=== PATIENT | female | born 1990 | race Caucasian/White ===

== ENCOUNTER 2024-11-27 15:59 | Emergency (ER) | payer OTHER ==
--- OUTSIDE RECORDS SUMMARY | 2024-11-27 16:03 | XMS REPORT | Continuity of Care Document ---
Author Name Unknown Address [address] [facility] [place] [address] [facility] [place] Address [address] [facility] [address] [place] [address] Care Team Providers Care Back Padder Name Role Phone Kamlesh Suarez Primary Care Physician [phone] [email or web address]_S Attending Clinician Unavaila JOSE Amaya Attending Clinician Unavailable Kristina LOGAN, Jose Morris Attending Clinician [phone] Doctor Unassigned, Doniphan Attending Clinician U navailable 2, Adc Lab Attending Clinician Unavailable ERIC CROOKS Attending Clinician Unavailable Yelena CARSON, Chelo Attending Clinician [phone] Petey MEZA, Ana Del Toro Attending Clinician Unavailab le Only, Ang Db Test Attending Clinician Unavailyousif e Unknown, Attending Attending Clinician Unavailab Yon Self Attending Clinician [phone] YON LANG Attending Clinician Unavailable CHELO KIRK Attending Clinician Unavailable Ann Marie Solis RN Attending Clinician Unavailable Rebecca Sanchez RN Attending Clinician Unavaila QUINTON Roy Attending Clinician Unavail able Only, Fri Cbc Test Attending Clinician Unavailab Quinton Lopez DO Attending Clinician [phone] LESVIA MAYFIELD Attending Clinician Unavailyousif Eaton MD, Dorita Dawson Attending Clinician [phone] [email or web address]_S Admitting Clinician Unavaila ble Payers Payer Name Policy Type Policy Number Effective Date Expirati on Date Source TSHBP 90 DEGREES [id number] 2022 00:00:00 [employer] HMO [id number] 00:00:00 MELVINA TORIBIO [id number] 2016 00:00:00 Problems Condition Name Condition Details Condition Category Status Onset Date Resolution Date Last Treatment Date Treating Clinician Comments Source Severe single current episode of major depressive disorder, without psychotic features Severe single current episode of major depressive disorder, without psychotic features Disease Active 02-02 00:00: 00 [facility] S/P primary low transverse S/P primary low transverse Disease Active 01-16 00:00: 00 [facility] Morbid obesity with body mass index of 50 or higher Morbid obesity with body mass index of 50 or higher Disease Active 12-12 00:00: 00 [facility] Morbid obesity with body mass index of 40.0-49.9 Morbid obesity with body mass index of 40.0-49.9 Disease Active 12-12 00:00: 00 [facility] BV (bacterial vaginosis) BV (bacterial vaginosis) Disease Active 11-05 00:00: 00 [facility] Sleep disturbanc e Sleep disturbanc e Disease Active 09-05 00:00: 00 [facility] Depressed mood Depressed mood Disease Active 2015-07 00:00: 00 [facility] Allergies, Adverse Reactions, Alerts Allergy Name Allergy Type Status Severity Reaction(s) Onset Date Inactive Date Treating Clinician Comments Source HYDROCOD ONE DRUG INGREDI Active Hives 2015-07 00:00: 00 [facility] Hydrocod one Propensi ty to adverse reaction s Active Hives 2015-07 00:00: 00 Father states he is severely allergic to Morphine [facility] Social History Social Habit Start Date Stop Date Quantity Comments Source [facility] to SARS-CoV-2 (event) 2022-09-06 00:00:00 2022-09-16 14:41:00 Not sure [facility] Alcohol intake 2022-02-25 00:00:00 2022-02-25 00:00:00 .43 /d [facility] History of Social function 2019-02-02 00:00:00 2019-02-02 00:00:00 [facility] Tobacco use and exposure 2016-08-22 00:00:00 2016-08-22 00:00:00 Smokeless tobacco non-user [facility] Sex Assigned At 1990 00:00:00 1990 00:00:00 [facility] Smoking Status Start Date Stop Date Source Never smoked tobacco [facility] Medications Ordered Medication Name Filled Medication Name Start Date Stop Date Current Medication? Ordering Clinician Indication Dosage Frequency Signature (SIG) Comments Components Source metFORMIN 500 mg tablet 18 00:00: 00 Yes 500mg Take 500 mg by mouth in the morning. [facility] ferrous sulfate (IRON, FERROUS SULFATE,) 325 mg (65 mg iron) tablet 08-13 00:00: 00 Yes [id number] 325mg Take 1 tablet by mouth in the morning and 1 tablet in the evening. [facility] levothyroxi ne 100 mcg tablet 2021-07 2 00:00: 00 Yes [id number] 100ug Take 1 tablet by mouth every morning. [facility] medroxyPROG ESTERone (PROVERA) 10 mg tablet 2021-07 012 00:00: 00 Yes [id number] 20mg Take 2 tablets by mouth in the morning. [facility] miSOPROStoL 200 mcg tablet 2021-07 0-12 00:00: 00 09-16 00:00 :00 No [id number] Take one tablet night before procedure, then take one tablet morning of procedure [facility] miSOPROStoL 200 mcg tablet 02-25 00:00: 00 05-07 00:00 :00 No [id number] Take one tablet night before procedure, then take one tablet morning of procedure [facility] escitalopra m oxalate 10 mg tablet 7-11 00:00: 00 Yes 10mg Take 10 mg by mouth in the morning. [facility] levothyroxi ne 100 mcg tablet 506 00:00: 00 07-24 00:00 :00 No 100ug Take 100 mcg by mouth. [facility] SERTraline (ZOLOFT) 25 mg tablet 2018-07 2- 00:00: 00 Yes [id number] 25mg Take 1 tablet by mouth daily. [facility] MULTIVITAMI N ORAL 02-02 15:34: 00 Yes Take by mouth. [facility] Immunizations Ordered Immunization Name Filled Immunization Name Date Status Comments Source Influenza Virus Vaccine Quad IM 3+ YRS 2022-03-19 00:00:00 Completed [facility] TDAP 2022-03-19 00:00:00 Completed [facility] TDAP 2016-09-05 00:00:00 Completed [facility] TDAP 2016-09-05 00:00:00 Completed [facility] TDAP 2016-09-05 00:00:00 Completed [facility] TDAP 2016-09-05 00:00:00 Completed [facility] TDAP 2016-09-05 00:00:00 Completed [facility] TDAP 2016-09-05 00:00:00 Completed [facility] TDAP 2016-09-05 00:00:00 Completed [facility] TDAP 2016-09-05 00:00:00 Completed [facility] TDAP 2016-09-05 00:00:00 Completed [facility] TDAP 2016-09-05 00:00:00 Completed [facility] TDAP 2016-09-05 00:00:00 Completed [facility] TDAP 2016-09-05 00:00:00 Completed [facility] TDAP 2016-09-05 00:00:00 Completed [facility] TDAP 2016-09-05 00:00:00 Completed [facility] TDAP 2016-09-05 00:00:00 Completed [facility] TDAP 2016-09-05 00:00:00 Completed [facility] TDAP 2016-09-05 00:00:00 Completed [facility] Influenza Virus Vaccine Quad IM 3+ YRS 2016-05-02 00:00:00 Completed [facility] Influenza Virus Vaccine Quad IM 3+ YRS 2016-05-02 00:00:00 Completed [facility] Influenza Virus Vaccine Quad IM 3+ YRS 2016-05-02 00:00:00 Completed [facility] Influenza Virus Vaccine Quad IM 3+ YRS 2016-05-02 00:00:00 Completed [facility] Influenza Virus Vaccine Quad IM 3+ YRS 2016-05-02 00:00:00 Completed [facility] Influenza Virus Vaccine Quad IM 3+ YRS 2016-05-02 00:00:00 Completed [facility] Influenza Virus Vaccine Quad IM 3+ YRS 2016-05-02 00:00:00 Completed [facility] Influenza Virus Vaccine Quad IM 3+ YRS 2016-05-02 00:00:00 Completed [facility] Influenza Virus Vaccine Quad IM 3+ YRS 2016-05-02 00:00:00 Completed [facility] Influenza Virus Vaccine Quad IM 3+ YRS 2016-05-02 00:00:00 Completed [facility] Influenza Virus Vaccine Quad IM 3+ YRS 2016-05-02 00:00:00 Completed [facility] Influenza Virus Vaccine Quad IM 3+ YRS 2016-05-02 00:00:00 Completed [facility] Influenza Virus Vaccine Quad IM 3+ YRS 2016-05-02 00:00:00 Completed [facility] Influenza Virus Vaccine Quad IM 3+ YRS 2016-05-02 00:00:00 Completed [facility] Influenza Virus Vaccine Quad IM 3+ YRS 2016-05-02 00:00:00 Completed [facility] Influenza Virus Vaccine Quad IM 3+ YRS 2016-05-02 00:00:00 Completed [facility] Influenza Virus Vaccine Quad IM 3+ YRS 2016-05-02 00:00:00 Completed [facility] Vital Signs Vital Name Observation Time Observation Value Comments S ource Systolic blood pressure 2022-09-16 20:50:00 99 mm[Hg] Dillon o [facility] Diastolic blood pressure 2022-09-16 20:50:00 65 mm[Hg] Dillon o [facility] Heart rate 2022-09-16 20:50:00 71 /[facility] temperature 2022-09-16 20:50:00 37.06 Ryanne [facility] Body height 2022-09-16 20:50:00 165.1 cm [facility] Body weight 2022-09-16 20:50:[address] [facility] BMI 2022-09-16 20:50:00 58.31 kg/m2 Univ [facility] Systolic blood pressure 2022-08-13 15:11:00 90 mm[Hg] University o [facility] Diastolic blood pressure 2022-08-13 15:11:00 58 mm[Hg] Dillon o [facility] Heart rate 2022-08-13 15:11:00 76 /min Unive [facility] Body temperature 2022-08-13 15:11:00 37.06 Ryanne [facility] Body height 2022-08-13 15:11:00 165.1 cm Univ [facility] Body weight 2022-08-13 15:11:00 158.215 kg Univ [facility] BMI 2022-08-13 15:11:00 58.04 kg/m2 Univ [facility] Systolic blood pressure 2022-05-01 14:49:00 97 mm[Hg] Dillon o [facility] Diastolic blood pressure 2022-05-01 14:49:00 58 mm[Hg] [facility] hospital Heart rate 2022-05-01 14:49:00 64 /min Unive [facility] Body temperature 2022-05-01 14:49:00 36.89 Ryanne [facility] Body height 2022-05-01 14:49:[address] [facility] Body weight 2022-05-01 14:49:00 156.854 kg Univ [facility] BMI 2022-05-01 14:49:00 57.54 kg/m2 Univ [facility] Systolic blood pressure 2022-02-25 19:12:00 104 mm[Hg] University o [facility] Diastolic blood pressure 2022-02-25 19:12:00 68 mm[Hg] General acute hospital Heart rate 2022-02-25 19:12:00 75 /min Unive [facility] Body temperature 2022-02-25 19:12:00 36.78 Ryanne [facility] Respiratory rate 2022-02-25 19:12:00 19 /min [facility] Body height 2022-02-25 19:12:00 165.1 cm [facility] Body weight 2022-02-25 19:12:00 155.221 kg [facility] BMI 2022-02-25 19:12:00 56.95 kg/m2 [facility] Procedures Procedure Date / Time Performed Performing Clinicia n Source DISCLOSURE AND CONSENT, MEDICAL AND SURGICAL PROCEDURES 2022-09-16 06:01:00 Doctor Unassigned, Doniphan [facility] POCT TEST 2022-09-16 00:00:00 Jose Acevedo [facility] ASSIGNMENT OF BENEFITS 2022-08-13 14:53:26 Docto r Unassigned, Doniphan [facility] DISCLOSURE AND CONSENT, MEDICAL AND SURGICAL PROCEDURES 2022-05-01 05:01:00 Doctor Unassigned, Doniphan [facility] POCT TEST 2022-05-01 00:00:00 Jose Acevedo [facility] PHYSICIAN ORDERS 2022-03-19 05:01:00 Doctor Unas signed, Doniphan [facility] Encounters Start Date/Time End Date/Time Encounter Type Admission Type Attending Clinicians Care Facility Care Department Encounter ID Source 2023-05-23 00:00:00 2023-05-23 00:00:00 Outpatient GC_[email or web address] diyala_S [facility] [id number] [facility] 2022-10-15 14:00:00 2022-10-15 14:00:00 Outpatient R JOSE ACEVEDO [facility] [id number] [facility] 2022-10-14 00:00:00 2022-10-14 00:00:00 Telephone Jose Acevedo [facility] 1.2.840.114 350.1.13.10 4.2.7.2.686 [id number] [facility] 2022-09-16 14:45:00 2022-09-16 15:37:39 Outpatient JOSE ALVAREZ [facility] [id number] [facility] 2022-09-16 14:45:00 2022-09-16 15:37:39 Office Visit Jose Acevedo [facility] 1.2.840.114 350.1.13.10 4.2.7.2.686 [id number] [facility] 2022-09-16 00:00:00 2022-09-16 00:00:00 Orders Only Doctor Unassigned, Doniphan [facility] 1.20.114 350.1.13.10 4.2.7.2.686 [id number] [facility] 2022-08-19 13:45:00 2022-08-19 13:45:00 Outpatient R KRISTINA [facility] [id number] [facility] 2022-08-13 10:00:00 2022-08-13 10:46:35 [facility] [id number] 2022-08-13 10:00:00 2022-08-13 10:15:00 Manager Zone Visit 2, Adc [facility] 1.2840.114 350.1.13.10 4.2.7.2.686 [id number] [facility] 2022-08-13 09:00:00 2022-08-13 09:50:38 Office Visit Jose Acevedo [facility] 1.2.840.114 350.1.13.10 4.2.7.2.686 [id number] [facility] 2022-08-13 00:00:00 2022-08-13 00:00:00 Orders Only Doctor Unassigned, Doniphan [facility] 1.2840.114 350.1.13.10 4.2.7.2.686 [id number] [facility] 2022-08-13 00:00:00 2022-08-13 00:00:00 Case Management Jose Acevedo [facility] 1.2840.114 350.1.13.10 4.2.7.2.686 [id number] [facility] 2022-07-22 00:00:00 2022-07-22 00:00:00 Refill Jose Acevedo [facility] 1.2840.114 350.1.13.10 4.2.7.2.686 [id number] [facility] 2022-06-05 15:00:00 2022-06-05 15:00:00 Outpatient R ERIC CROOKS [facility] [id number] [facility] 2022-05-07 00:00:00 2022-05-07 00:00:00 Case Management GonzaloChelo srivastava [facility] 1.2.840.114 350.1.13.10 4.2.7.2.686 [id number] [facility] 2022-05-01 09:45:00 2022-05-01 10:55:45 Outpatient R JOSE ACEVEDO [facility] [id number] [facility] 2022-05-01 09:45:00 2022-05-01 10:55:45 Office Visit Jose Acevedo [facility] 1.2.840.114 350.1.13.10 4.2.7.2.686 [id number] [facility] 2022-05-01 00:00:00 2022-05-01 00:00:00 Orders Only Doctor Unassigned, Doniphan [facility] 1.2.840.114 350.1.13.10 4.2.7.2.686 [id number] [facility] 2022-04-28 09:00:00 2022-04-28 09:00:00 Outpatient R JOSE ACEVEDO [facility] [id number] [facility] 2022-04-04 00:00:00 2022-04-04 00:00:00 Letter (Out) Ana Angelo [facility] 1.114 350.1.13.10 4.2.7.2.686 [id number] [facility] 2022-04-03 11:00:00 2022-04-03 11:15:00 Laboratory Only Only, Ang Db Test Unknown, Attending Yon Lang [facility] 1.114 350.1.13.10 4.2.7.2.686 [id number] [facility] 2022-04-03 11:00:00 2022-04-03 10:57:38 Outpatient R YON LANG [facility] [id number] [facility] 2022-03-20 00:00:00 2022-03-20 00:00:00 Telephone Chelo [facility] 1.114 350.1.13.10 4.2.7.2.686 [id number] [facility] 2022-03-19 00:00:00 2022-03-19 00:00:00 Orders Only Doctor Unassigned, Doniphan [facility] 1..114 350.1.13.10 4.2.7.2.686 [id number] [facility] 2022-03-19 00:00:00 2022-03-19 00:00:00 Patient Secure Msg Doctor Unassigned, Doniphan [facility] 1..114 350.1.13.10 4.2.7.2.686 [id number] [facility] 2022-03-18 13:45:00 2022-03-18 13:45:00 Outpatient R JOSE ACEVEDO [facility] [id number] [facility] 2022-03-18 13:45:00 2022-03-18 13:45:00 Outpatient R JOSE ACEVEDO [facility] [id number] [facility] 2022-03-17 00:00:00 2022-03-17 00:00:00 Telephone Jose Acevedo [facility] 1.2.840.114 350.1.13.10 4.2.7.2.686 [id number] [facility] 2022-03-06 00:00:00 2022-03-06 00:00:00 [id number] 2022-02-25 16:00:00 2022-02-25 16:15:00 Manager Zone Visit 2, Adc Lab Yelena [facility] 1.2.840.114 350.1.13.10 4.2.7.2.686 [id number] [facility] 2022-02-25 14:00:00 2022-02-25 15:17:32 [facility] [id number] [facility] 2022-02-25 14:00:00 2022-02-25 15:17:32 Office Visit Yelena Chelo [facility] 1.2.840.114 350.1.13.10 4.2.7.2.686 [id number] [facility] 2022-02-25 14:00:00 2022-02-25 15:17:32 [facility] [id number] [facility] 2021-07-28 00:00:00 2021-07-28 00:00:00 Telephone Ann Marie Solis [facility] 1.2840.114 350.1.13.10 4.2.7.2.686 [id number] [facility] 2021-07-27 00:00:00 2021-07-27 00:00:00 Telephone Rebecca Sanchez [facility] 1.2840.114 350.1.13.10 4.2.7.2.686 [id number] [facility] 2021-07-26 10:45:00 2021-07-26 11:03:54 Outpatient R QUINTON ROMAN [facility] [id number] [facility] 2021-07-26 10:45:00 2021-07-26 11:00:00 Laboratory Only Only, Fri Cbc Test Quinton Roman [facility] 1..114 350.1.13.10 4.2.7.2.686 [id number] [facility] 2021-03-14 00:00:00 2021-03-14 00:00:00 Letter (Out) PeteyAna george [facility] 1.2840.114 350.1.13.10 4.2.7.2.686 [id number] [facility] 2021-03-12 17:00:00 2021-03-12 16:43:51 Outpatient R LESVIA MAYFIELD [facility] [id number] [facility] 2020-10-16 00:00:00 2020-10-16 00:00:00 Patient Outreach Quinton Roman [facility] 1.2.114 350.1.13.10 4.2.7.2.686 [id number] [facility] 2020-03-28 14:39:09 2020-03-28 15:48:35 Office Visit Dorita Eaton [facility] 1.2.840.114 350.1.13.10 4.2.7.2.686 [id number] [facility] 2020-03-28 14:30:00 2020-03-28 14:30:00 Outpatient R CHELO KIRK [facility] [id number] [facility] 2020-03-28 14:30:00 2020-03-28 14:30:00 [facility] [id number] [facility] 2020-03-28 00:00:00 2020-03-28 00:00:00 Orders Only Doctor Unassigned, Doniphan [facility] 1.2.840.114 350.1.13.10 4.2.7.2.686 [id number] [facility] 2019-03-21 00:00:00 2019-03-21 00:00:00 Telephone Chelo Kirk [facility] 1.2.840.114 350.1.13.10 4.2.7.2.686 [id number] [facility] Results Test Description Test Time Test Comments Results Result Co mments Source [facility] [id number] 20:54:00* Test Item Value Reference Range Interpretation Comme nts POCT PREG (test code = 1605) Negative On board controls acceptable with C Line (test code = 3574) Yes POCT PREG LOT # (test code = 3575) POCT PREG TEST DATE ( test code = 3576) [id number] 14:58:00* Test Item Value Reference Range Interpretation Comme nts POCT PREG (test code = 1605) Negative On board controls acceptable with C Line (test code = 3574) Yes POCT PREG LOT # (test code = 3575) POCT PREG TEST DATE ( test code = 3576) [facility] [id number] 14:58:00* Test Item Value Reference Range Interpretation Comme nts POCT PREG (test code = 1605) Negative On board controls acceptable with C Line (test code = 3574) Yes POCT PREG LOT # (test code = 3575) POCT PREG TEST DATE ( test code = 3576) [facility]
[2024-11-27] MEDS ORDERED: ALBUTEROL 2.5 MG/3 ML NEB SOL ONE (16:28)
[2024-11-27] MEDS ORDERED: dexAMETHasone 10 MG/ML VIAL ONE (16:28)
[2024-11-27] MEDS ORDERED: IPRATROPIUM BROM 0.5MG/2.5ML ONE (16:28)
--- NOTE | 2024-11-27 17:03 | RAD REPORT ---
EXAMINATION: TWO VIEW CHEST XR CLINICAL INDICATION: Cough;Congestion TECHNIQUE: 2 views of the chest was performed. COMPARISON: No prior exam. FINDINGS: The lungs are well inflated and clear. The heart is upper limit of normal in size. No displaced fract ures evident. IMPRESSION: No acute or significant abnormalities.
[2024-11-27 17:09] LABS: SARS-CoV-2 Antigen Rapid Res Negative (Negative)
--- NOTE | 2024-11-27 17:22 | ER ---
Nurse's Notes [facility] Name: Zita Reynolds Age: 34 yrs Sex: Female : 1990 Arrival Date: 11/27/2024 Time: 15:59 Bed 18 Private MD: Diagnosis: Acute bronchitis, unspecified Presentation: 11/27 16:12 Chief complaint: Patient states: Cough, congestion, wheezing, SOB, diarrhea since ll1 Wed. Coronavirus screen: Client denies travel out of the [place] in the last 14 days. congestion, cough unrelated to allergies, difficulty breathing, shortness of breath, Client presents with at least one sign or symptom that may indicate coronavirus-19. Standard/surgical mask placed on the client. Ebola Screen: Patient denies travel to an Ebola-affected area in the 21 days before illness onset. Resp Distress? Moderate respiratory distress is noted. The charge nurse has been notified. Initial Sepsis Screen: Does the patient meet any 2 criteria? No. Patient's initial sepsis screen is negative. Does the patient have a suspected source of infection? No. Patient's initial sepsis screen is negative. Risk Assessment: Do you want to hurt yourself or someone else? Patient reports no desire to harm self or others. Onset of symptoms was November 23, 2024. 16:12 Method Of Arrival: Ambulatory ll1 16:12 Acuity: AURELIA 3 ll1 Triage Assessment: 16:13 General: Appears distressed, uncomfortable, Behavior is calm, cooperative, appropriate ll1 for age. Pain: Complains of pain in chest Pain currently is 6 out of 10 on a pain scale. Quality of pain is described as burning. Neuro: Reports headache weakness. Respiratory: Reports shortness of breath cough that is pain with cough Breath sounds with wheezes. GI: Reports diarrhea. Historical: - Allergies: 16:03 Hydrocodone-Acetaminophen; ll1 - PMHx: 16:03 Hypothyroidism; PCOS; ll1 - PSHx: 16:03 section; ll1 - Immunization history:: Adult Immunizations up to date. - Infectious Disease History:: Denies. - Social history:: Smoking status: Patient reports the use of cigarette tobacco products, denies chronic smoking, but will smoke occasionally. Screenin:12 [facility] ED Fall Risk Assessment (Adult) History of falling in the last 3 months, ld1 including since admission No falls in past 3 months (0 pts) Confusion or Disorientation No (0 pts) Intoxicated or Sedated No (0 pts) Impaired Gait No (0 pts) Mobility Assist Device Used No (0 pt) Altered Elimination No (0 pt) Score/Fall Risk Level 0 - 2 = Low Risk Oriented to surroundings, Hourly rounding (assess needs \T\ fall precautionary measures) done. Abuse screen: Denies threats or abuse. Denies injuries from another. Nutritional screening: No deficits noted. Tuberculosis screening: No symptoms or risk factors identified. Assessment: 16:40 Reassessment: No changes from previously documented assessment. Patient and/or family ll1 updated on plan of care and expected duration. Pain level reassessed. 17:11 General: Appears in no apparent distress. comfortable, Behavior is calm, cooperative, ld1 appropriate for age. Cardiovascular: Capillary refill < 3 seconds Patient's skin is warm and dry. Respiratory: Airway is patent Respiratory effort is even, unlabored. 17:55 Reassessment: Patient appears in no apparent distress at this time. No changes from ld1 previously documented assessment. Patient and/or family updated on plan of care and expected duration. Pain level reassessed. Patient is alert, oriented x 3, equal unlabored respirations, skin warm/dry/pink. Vital Signs: 16:12 BP 143 / 84; Pulse 89; Resp 24; Temp 98.8(O); Pulse Ox 97% on R/A; Weight 160.57 kg; ll1 Height 5 ft. 5 in. ; Pain 6/10; 17:11 BP 126 / 53; Pulse 84; Resp 18; Pulse Ox 100% on R/A; ld1 17:55 BP 127 / 74; Pulse 81; Resp 18; Pulse Ox 100% on R/A; ld1 16:12 Body Mass Index 58.91 (160.57 kg, 165.1 cm) ll1 16:12 Pain Scale: Adult ll1 ED Course: 16:02 Patient arrived in ED. gl 16:03 [facility] 16:03 Mario Davis MD is Attending Physician. dr5 16:03 Arm band placed on Patient placed in an exam room, on a stretcher. ll1 16:07 Danielle Kolb, SUSANA is Primary Nurse. ld1 16:13 Triage completed. ll1 16:40 COVID swab sent to lab. ll1 16:58 Chest Pa And Lat (2 Views) XRAY In Process Unspecified. EDMS 17:12 Patient has correct armband on for positive identification. Placed in gown. Bed in low ld1 position. Call light in reach. Side rails up X2. Pulse ox on. NIBP on. Door closed. Noise minimized. 17:12 No provider procedures requiring assistance completed. ld1 17:56 Patient did not have IV access during this emergency room visit. ld1 Administered Medications: 16:36 Drug: DuoNeb Nebulize (3:1) (2.5 mg - 0.5 mg) 6 ml Nebulizer once Route: Nebulizer; ll1 16:37 Drug: Dexamethasone IM 10 mg IM once Route: IM; Site: left gluteus; ll1 Medication: 17:12 VIS not applicable for this client. ld1 Outcome: 17:22 Discharge ordered by MD. dr5 17:56 Discharged to home ambulatory, ld1 17:56 Condition: stable 17:56 Discharge instructions given to patient, family, Instructed on discharge instructions, follow up and referral plans. medication usage, Demonstrated understanding of instructions, follow-up care, medications, Prescriptions given X 4, 17:56 Patient left the ED. ld1 Signatures: Dispatcher [employer] EDMS Joni Hernandez, RN RN ll1 Danielle Kolb RN RN ld1 Alexei Carlos, WINDOWS SUPPORT ENGINEER-C WINDOWS SUPPORT ENGINEER-Cdr5 Izabella Junior, Reg Reg gl Corrections: (The following items were deleted from the chart) 16:16 16:12 Pulse 89bpm; Resp 24bpm; Pulse Ox 97% RA; Temp 98.8F Oral; 160.57 kg; Height 5 ll1 ft. 5 in.; BMI: 58.9; Pain 6/10, Adult; ll1
--- NOTE | 2024-11-27 17:23 | EDPHYS ---
Physician Documentation [facility] Name: Zita Reynolds Age: 34 yrs Sex: Female : 1990 Arrival Date: 11/27/2024 Time: 15:59 Bed 18 Private MD: ED Physician Mario Davis HPI: 11/27 17:55 This 34 yrs old Female presents to ER via Ambulatory with complaints of dr5 Cough, Congestion. 17:55 Patient is a 34-year-old female with history of hypothyroidism and PCOS coming in with dr5 cough, congestion, wheezing since Thursday. Patient reports that she was diagnosed with pneumonia last month with similar symptoms. Patient denies fever. Historical: - Allergies: 16:03 Hydrocodone-Acetaminophen; ll1 - PMHx: 16:03 Hypothyroidism; PCOS; ll1 - PSHx: 16:03 section; ll1 - Immunization history:: Adult Immunizations up to date. - Infectious Disease History:: Denies. - Social history:: Smoking status: Patient reports the use of cigarette tobacco products, denies chronic smoking, but will smoke occasionally. ROS: 17:55 Constitutional: as per hpi dr5 Exam: 17:55 Constitutional: This is a well developed, well nourished patient who is awake, alert, dr5 and in no acute distress. Head/Face: Normocephalic, atraumatic. ENT: Nares patent. No nasal discharge, no septal abnormalities noted. Tympanic membranes are normal and external auditory canals are clear. Oropharynx with no redness, swelling, or masses, exudates, or evidence of obstruction, uvula midline. Mucous membranes moist. Neck: Trachea midline, no thyromegaly or masses palpated, and no cervical lymphadenopathy. Supple, full range of motion without nuchal rigidity, or vertebral point tenderness. No Meningismus. Chest/axilla: Normal chest wall appearance and motion. Nontender with no deformity. No lesions are appreciated. Cardiovascular: Regular rate and rhythm with a normal S1 and S2. Normal PMI, no JVD. No pulse deficits. Back: No spinal tenderness. No costovertebral tenderness. Full range of motion. Skin: Warm, dry with normal turgor. Normal color with no rashes, no lesions, and no evidence of cellulitis. MS/ Extremity: Pulses equal, no cyanosis. Neurovascular intact. Full, normal range of motion. Neuro: Awake and alert, GCS 15, oriented to person, place, time, and situation. Cranial nerves II-XII grossly intact. Motor strength 5/5 in all extremities. Sensory grossly intact. Cerebellar exam normal. Normal gait. 17:55 Respiratory: mild respiratory distress is noted, Respirations: normal, Breath sounds: wheezing: that is mild, is heard diffusely, Vital Signs: 16:12 BP 143 / 84; Pulse 89; Resp 24; Temp 98.8(O); Pulse Ox 97% on R/A; Weight 160.57 kg; ll1 Height 5 ft. 5 in. ; Pain 6/10; 17:11 BP 126 / 53; Pulse 84; Resp 18; Pulse Ox 100% on R/A; ld1 17:55 BP 127 / 74; Pulse 81; Resp 18; Pulse Ox 100% on R/A; ld1 16:12 Body Mass Index 58.91 (160.57 kg, 165.1 cm) ll1 16:12 Pain Scale: Adult ll1 MDM: 16:03 Medical Screening Exam initiated dr5 17:55 Differential Diagnosis altered mental status, COVID, pneumonia, bronchitis. Data dr5 reviewed: vital signs, nurses notes, lab test result(s), radiologic studies. I considered the following discharge prescriptions or medication management in the emergency department Medications were administered in the Emergency Department. See MAR. Care significantly affected by the following chronic conditions: PCOS, hypothyroidism. Care significantly affected by the following Social Determinants of Health: Poor access to healthcare and/or lack of insurance, Poor access to transportation, Problems related to employment. Counseling: I had a detailed discussion with the patient and/or guardian regarding the historical points, exam findings, and any diagnostic results supporting the discharge/admit diagnosis, the presence of at least one elevated blood pressure reading (>120/80) during this emergency department visit, lab results, radiology results, the need for outpatient follow up, for definitive care, a family practitioner, to return to the emergency department if symptoms worsen or persist or if there are any questions or concerns that arise at home. ED course: DuoNeb x 2 given with steroids with moderate improvement of symptoms. Patient reports she show much better. Will cover for pneumonia with azithromycin, give steroid pack, give albuterol inhaler, and cough medication. Recommended follow-up primary care doctor this week.Recommended alternating Tylenol and Motrin as needed for fever and pain. All questions answered and strict ER precautions given.. 11/27 16:19 Order name: SARS-COV-2 Antigen Rapid; Complete Time: 17:22 dr5 11/27 16:19 Order name: Chest Pa And Lat (2 Views) XRAY; Complete Time: 17:05 dr5 Administered Medications: 16:36 Drug: DuoNeb Nebulize (3:1) (2.5 mg - 0.5 mg) 6 ml Nebulizer once Route: Nebulizer; ll1 16:37 Drug: Dexamethasone IM 10 mg IM once Route: IM; Site: left gluteus; ll1 Disposition: 22:18 Co-signature as Attending Physician, Mario Davis MD I agree with the assessment and taisha plan of care. Disposition Summary: 11/27/24 17:22 Discharge Ordered Notes: Location: Home dr5 Condition: Stable dr5 Diagnosis - Acute bronchitis, unspecified dr5 Followup: dr5 - With: Emergency Department - When: As needed - Reason: Worsening of condition Followup: dr5 - With: Private Physician - When: 1 - 2 days - Reason: Recheck today's complaints, Continuance of care, Re-evaluation by your physician Discharge Instructions: - Discharge Summary Sheet dr5 - Acute Bronchitis, Adult dr5 Forms: - Work release form dr5 - Medication Reconciliation Form dr5 - Antibiotic Education dr5 - Patient Portal Instructions dr5 - Leadership Thank You Letter dr5 Prescriptions: - Bromfed DM 2-30-10 mg/5 mL Oral syrup - administer 10 milliliter ORAL route every 8 hours As needed as needed for sinus dr5 symptoms; 240 milliliter; Refills: 0, Product Selection Permitted - albuterol sulfate 90 mcg/actuation Inhalation HFA Aerosol Inhaler - inhale 2 puff INHALATION route 4 times per day as needed for shortness of dr5 breath or wheezing; 1 application; Refills: 0, Product Selection Permitted - Zithromax Z-Wilmer 250 mg Oral Tablet - take 1 tablet ORAL route as directed for 5 days Day 1 - take two (2) tablets dr5 one time. Day 2, 3, 4 , 5 take one (1) tablet once daily.; 6 tablet; Refills: 0, Product Selection Permitted - Medrol (Wilmer) 4 mg Oral Tablets, Dose Pack - take 1 tablet ORAL route as directed - follow package instructions; 1 packet; dr5 Refills: 0, Product Selection Permitted Signatures: Dispatcher [employer] EDMS Mario Davis MD MD cha Lewis, Lynsay, RN RN ll1 Alexei Carlos, [employer]-C [employer]-Cdr5 Corrections: (The following items were deleted from the chart) 16:20 16:20 SARS-COV-2 Antigen Rapid+I.LAB.BRZ ordered. EDMS EDMS 16:20 16:20 Chest Pa And Lat (2 Views)+RAD.RAD.BRZ ordered. EDMS EDMS
[2024-11-27 18:02] VITALS: TEMP 98.8
[2024-11-27 18:04] VITALS: O2SAT 100
[2024-11-27 18:06] VITALS: BP 127/74
== END 2024-11-27 17:56 | disposition home or self-care (01) ==
LOC: ER 15:59
DX: J20.9 Acute bronchitis, unspecified (principal); F17.210 Nicotine dependence, cigarettes, uncomplicated; Z11.52 Encounter for screening for COVID-19
CPT/HCPCS: 36415; 71046; 96372; 99285; 87426; J7613; J7644; J1100